=== PATIENT | female | born 1950 | race Asian ===

== ENCOUNTER 2024-03-12 07:05 | Emergency (ER) | payer OTHER ==
[~2024-03-12] VITALS: Ht 160 cm; Wt 60.9 kg
[2024-03-12] MEDS ORDERED: ASPI-1450 PO (07:35)
[2024-03-12] MEDS ORDERED: LISI-894 PO (07:35)
[2024-03-12] MEDS ORDERED: HYDR25TA2 PO (07:35)
[2024-03-12] MEDS ORDERED: NAPR-1193 PO (07:35)
[2024-03-12 07:49] LABS: BASOPHILS % (AUTO) 0.6 % (0.0-2.0); EOSINOPHILS % (AUTO) 1.2 % (1.0-6.0); HEMATOCRIT 40.6 % (36-46); HEMOGLOBIN 12.7 g/dL (12.0-16.0); LYMPHOCYTES # (AUTO) 1.2 K/uL (1.0-4.8); LYMPHOCYTES % (AUTO) 26.9 % (22.0-44.0); MEAN CORPUSCULAR HEMOGLOBIN 21.9 pg (26.0-34.0); MEAN CORPUSCULAR HGB CONC 31.2 G/dL (31.0-37.0); MEAN CORPUSCULAR VOLUME 70 fL (80-100); MONOCYTES # (AUTO) 0.2 K/uL (0.1-1.0); MONOCYTES % (AUTO) 5.3 % (2.0-9.0); NEUTROPHILS # (AUTO) 2.9 K/uL (1.8-7.7); PLATELET COUNT (AUTO) 192 K/uL (150-450); RED BLOOD CELL COUNT(AUTO) 5.79 MIL/uL (4.00-5.20); RED CELL DISTRIBUTION WIDTH 15.1 % (11.5-14.5); WHITE BLOOD COUNT (AUTO) 4.4 K/uL (4.5-11.0)
[2024-03-12 08:05] LABS: TROPONIN I-HIGH SENSITIVITY 4 ng/L (<51)
[2024-03-12 08:09] LABS: ANION GAP 10 mmol/L (8-16); CALCIUM, TOTAL 8.6 mg/dL (8.8-10.5); CARBON DIOXIDE 27 mmol/L (22-29); CHLORIDE 106 mmol/L (98-107); CREATININE 0.57 mg/dL (0.60-1.30); GLOMERULAR FILTR. RATE CALC > 60 mL/min (>60); GLUCOSE,RANDOM 166 mg/dL (70-110); POTASSIUM 3.1 mmol/L (3.5-5.1); SODIUM SERUM 143 mmol/L (136-145); UREA NITROGEN, BLOOD 19 mg/dL (7-18)
[2024-03-12 08:15] LABS: ALANINE AMINOTRANSFERASE 26 U/L (12-78); ALBUMIN 3.2 g/dL (3.4-5.0); ALKALINE PHOSPHATASE 71 U/L (46-116); ASPARTATE AMINOTRANSFERASE 24 U/L (15-37); BILIRUBIN,TOTAL 0.6 mg/dL (0.1-1.0); CHOLESTEROL 175 mg/dL (131-200); HDL CHOLESTEROL 88 mg/dL (40-60); LDL CHOL (CALC.) 75 mg/dL (0-130); TOTAL PROTEIN, SERUM 6.8 g/dL (6.4-8.2); TRIGLYCERIDES 62 mg/dL (15-150)
[2024-03-12] MEDS: POTASSIUM CHL 10 MEQ/WATER 50 ML IV ONE (08:25)
[2024-03-12 09:07] LABS: RBC MORPHOLOGY COMMENT ABNORMAL RBC MORPH
[2024-03-12 09:28] VITALS: TEMP 97
[2024-03-12] MEDS: ASPIRIN 81 MG CHEWABLE TABLET PO ONE (09:29)
[2024-03-12] MEDS: ONDANSETRON HCL 4 MG/2 ML VIAL IVP ONE (09:29)
[2024-03-12 10:43] LABS: PROTHROMBIN TIME 10.6 SEC (9.4-11.6)
[2024-03-12 11:12] VITALS: BP 133/83; PULSE 60; RESP 17; O2SAT 98
== END 2024-03-12 11:34 | disposition short-term general hospital (02) ==
LOC: EMS 07:08
DX: E87.6 Hypokalemia (principal); R47.81 Slurred speech; Z86.79 Personal history of other diseases of the circulatory system
CPT/HCPCS: 99291; 70496; 86870; 96365; 71045; 96375; 80061; 80053; 83735; 84484; 85025; 85610; 85730; 86850; 86900; 86901; 86905; 36415; 70498; 82948; 93005; 70450; G0480; J2405; J3480; 51702